=== PATIENT | male | born 1985 | race Hispanic/Latino ===

== ENCOUNTER → 2017-10-24 | Outpatient (CLI) | payer OTHER ==
[~2017-10-24] MED LIST: APIX2.5T PO; EMTR1TAB11 PO; TYL3 PO
== END | disposition home or self-care (01) ==
LOC: OIH 10:37
PROVIDERS: ATTEND Neurological Surgery
DX: M43.26 Fusion of spine, lumbar region (principal)
CPT/HCPCS: 72100

== ENCOUNTER 2018-03-05 10:00 | Observation (INO) | payer OTHER ==
[~2018-03-05] VITALS: Ht 185.4 cm; Wt 79.9 kg
[2018-03-05 10:42] LABS: BASOPHILS % (AUTO) 0.6 % (0.0-5.0); EOSINOPHILS % (AUTO) 1.2 % (0.0-8.0); LYMPHOCYTES % (AUTO) 24.4 % (21.0-51.0); MEAN CORPUSCULAR HEMOGLOBIN 33.1 pg (27.0-33.0); MEAN CORPUSCULAR HGB CONC 34.4 g/dL (32.0-36.0); MEAN CORPUSCULAR VOLUME 96.3 fL (79-99); MONOCYTES % (AUTO) 7.1 % (3.0-13.0); NEUTROPHILS % (AUTO) 66.7 % (40.0-77.0); PLATELET COUNT (AUTO) 245 K/uL (130-400); RED BLOOD CELL COUNT(AUTO) 4.56 MIL/uL (4.50-6.20); RED CELL DISTRIBUTION WIDTH 13.6 % (11.0-15.5); WHITE BLOOD COUNT (AUTO) 5.9 K/uL (4.8-10.8)
[2018-03-05 11:02] LABS: POTASSIUM 4.7 mmol/L (3.5-5.1)
[2018-03-05 11:17] VITALS: BP 118/69
[2018-03-05] MEDS ORDERED: EMTR1TAB11 PO (11:21)
[2018-03-07] VITALS (20 sets, daily range): BP systolic 92–125; BP diastolic 52–99
[2018-03-07] MEDS: CEFAZOLIN SODIUM 1 GM VIAL IVP SCH ×3 (05:00→13:52)
[2018-03-07] MEDS ORDERED: LACTATED RINGERS 1000ML 1,000 ML IV ONE (06:10)
[2018-03-07] MEDS ORDERED: BUPIVACAINE/PF 0.25% 30ML VIAL IJ ONE (06:38)
[2018-03-07] MEDS ORDERED: EPINEPHRINE 1 MG/ML AMPULE ONE (06:38)
[2018-03-07] MEDS ORDERED: DURAMORPH PF1 MG/ML 10ML AMP IV ONE (06:38)
[2018-03-07] MEDS ORDERED: THROMBIN-JMI 20000 UNIT KIT TP ONE (06:39)
[2018-03-07] MEDS ORDERED: BACITRACIN 50,000 UNIT VIAL ONE (06:39)
[2018-03-07] MEDS ORDERED: SODIUM CHLORIDE 0.9% 10 ML VIAL ONE (06:40)
[2018-03-07] MEDS ORDERED: GLYCOPYRROLATE 0.2 MG/ML 5 ML VIAL ONE ×2 (07:05→08:44)
[2018-03-07] MEDS ORDERED: NEOSTIGMINE 5MG/5ML SYR IV ONE ×2 (07:05→08:44)
[2018-03-07] MEDS ORDERED: DEXAMETHASONE SOD PHOSPHATE 10MG/ML 1ML VIAL ONE (07:05)
[2018-03-07] MEDS ORDERED: LIDOCAINE PF 2% 5ML ABBOJECT ONE (07:05)
[2018-03-07] MEDS ORDERED: MIDAZOLAM HCL 1 MG/ML 2ML VIAL ONE ×2 (07:06→07:07)
[2018-03-07] MEDS ORDERED: PROPOFOL 10 MG/ML 20ML VIAL IV ONE (07:06)
[2018-03-07] MEDS ORDERED: FENTANYL CITRATE PF 50 MCG/1 ML 2ML VIAL ONE ×2 (07:07)
[2018-03-07] MEDS ORDERED: ROCURONIUM BROMIDE 10MG/1ML 5ML VL ONE ×2 (08:53)
[2018-03-07] MEDS ORDERED: SUCCINYLCHOLINE CHLORIDE 20 MG/ML 10 ML VIAL ONE (08:53)
[2018-03-07] MEDS ORDERED: CALDOLOR 800MG+NS 250ML 250 ML IV ONE (08:56)
[2018-03-07] MEDS ORDERED: ARTIFICIAL TEARS 3.5 GM OINTMENT ONE ×2 (09:01)
[2018-03-07] MEDS ORDERED: PHENYLEPHRINE HCL 10 MG/ML 1ML VIAL IV ONE (09:02)
[2018-03-07] MEDS ORDERED: ROPIVACAINE 0.5% 5MG/ML 30ML IJ ONE (09:02)
[2018-03-07] MEDS ORDERED: SODIUM CHLORIDE 0.9% 10 ML VIAL IVP PRN (09:15)
[2018-03-07] MEDS ORDERED: CEFAZOLIN 2GM / 50 ML 50 ML IV SCH (09:15)
[2018-03-07] MEDS ORDERED: MORPHINE SULFATE 2 MG/ML 1ML SYG IVP PRN (09:15)
[2018-03-07] MEDS: DEXAMETHASONE SOD PHOSPHATE 4 MG/ML 1ML VIAL IVP SCH ×3 (09:15→21:38)
[2018-03-07] MEDS ORDERED: PROMETHAZINE HCL 25 MG/ML 1ML AMPULE IM PRN (09:15)
[2018-03-07] MEDS ORDERED: MEPERIDINE-PF 50 MG/ML SYG ONE ×2 (09:30→09:47)
[2018-03-07] MEDS: HYDROCODONE/ACETAMINOPHEN 5/325 MG TAB PO PRN ×3 (11:04→18:32)
[2018-03-07] MEDS: LACTATED RINGERS 1000ML 1,000 ML IV SCH ×2 (11:05→21:38)
[2018-03-07] MEDS ORDERED: MORPHINE SULFATE 4 MG/1ML SYG ONE ×2 (15:47→20:36)
[2018-03-08] VITALS: BP 106/61
[2018-03-08] MEDS ORDERED: MORPHINE SULFATE 4 MG/1ML SYG ONE (02:54)
[2018-03-08] MEDS: DEXAMETHASONE SOD PHOSPHATE 4 MG/ML 1ML VIAL IVP SCH (03:19)
[2018-03-08 04:00] VITALS: BP 124/58
[2018-03-08] MEDS: CEFAZOLIN SODIUM 1 GM VIAL IVP SCH (04:22)
[2018-03-08] MEDS: HYDROCODONE/ACETAMINOPHEN 5/325 MG TAB PO PRN (07:46)
[2018-03-08] MEDS ORDERED: EMTRICITABINE/TENOFOVIR 200/300 MG TAB PO SCH (08:00)
[2018-03-08 08:13] VITALS: BP 127/81
== END 2018-03-08 09:08 | disposition home or self-care (01) ==
LOC: EDSTATUS 10:00 → DAHIP 03-07 06:00 → 4AH 03-07 10:13 → 4BH 03-07 10:33
PROVIDERS: ADMIT Neurological Surgery; ATTEND Neurological Surgery
DX: T84.216A Breakdown (mechanical) of internal fixation device of vertebrae, initial encounter (principal); Y83.8 Other surgical procedures as the cause of abnormal reaction of the patient, or of later complication, without mention of misadventure at the time of the procedure; Y92.89 Other specified places as the place of occurrence of the external cause
CPT/HCPCS: 20680; 22102; 36415; 72020; 80051; 85025; 96372; 96374; 96375; 96376 ×2; A4218; A4510; A4600; G0378 ×28; J0171; J0330; J0690 ×3; J1100 ×4; J1741; J2001; J2175 ×2; J2250 ×2; J2270 ×3; J2370; J2550; J2704; J2710 ×2; J2795; J3010 ×2; J3490 ×5; J7030; J7120 ×3; J2274

== ENCOUNTER 2018-04-21 16:14 | Emergency (ER) | payer OTHER ==
[~2018-04-21 16:14] MED LIST changes: -APIX2.5T PO; -TYL3 PO
[2018-04-21] MEDS ORDERED: SODIUM CHLORIDE 0.9% 1000ML 3,000 ML IV ONE (17:46)
[2018-04-21] MEDS ORDERED: ACETAMINOPHEN EXTRA STRENGTH 500 MG TABLET ONE (17:46)
[2018-04-21 17:47] LABS: APPEARANCE,URINE Clear (CLEAR); BASOPHILS % (AUTO) 0.7 % (0.0-5.0); BILIRUBIN,URINE Small (NEGATIVE); COLOR,URINE Dark Yellow (YELLOW); EOSINOPHILS % (AUTO) 0.1 % (0.0-8.0); GLUCOSE, URINE (UA) Negative (NEGATIVE); HEMATOCRIT 40.6 % (42-54); KETONES,URINE Negative (NEGATIVE); LEUKOCYTE ESTERASE ,URINE Trace (NEGATIVE); LYMPHOCYTES % (AUTO) 8.2 % (21.0-51.0); MEAN CORPUSCULAR HEMOGLOBIN 31.2 pg (27.0-33.0); MEAN CORPUSCULAR HGB CONC 34.5 g/dL (32.0-36.0); MEAN CORPUSCULAR VOLUME 90.2 fL (79-99); MONOCYTES % (AUTO) 8.4 % (3.0-13.0); NEUTROPHILS % (AUTO) 82.6 % (40.0-77.0); NITRATE,URINE Negative (NEGATIVE); NUCLEATED RED BLOOD CELLS 0.1 % (0.0-0.19); OCCULT BLOOD,URINE Negative (NEGATIVE); PLATELET COUNT (AUTO) 145 K/uL (130-400); PROTEIN,URINE POS 1+ (NEGATIVE); WHITE BLOOD COUNT (AUTO) 9.4 K/uL (4.8-10.8)
[2018-04-21 17:55] LABS: BACTERIA,URINE None Seen /HPF (None Seen); MUCUS,URINE Few LPF (None Seen); RBC,URINE None Seen /HPF (0-1); WBC,URINE 0-1 /HPF (0-1)
[2018-04-21 17:58] LABS: CREATININE 0.9 mg/dL (0.5-1.5); POTASSIUM 4.2 mmol/L (3.5-5.1)
[2018-04-21 18:00] LABS: INR 0.9 (0.85-1.15); PARTIAL THROMBOPLASTIN TIME 28.9 SEC (26.3-35.5); PROTHROMBIN TIME 9.5 SEC (9.6-11.6)
[2018-04-21 18:04] LABS: ALBUMIN 3.8 g/dL (3.5-5.0); BILIRUBIN,TOTAL 0.6 mg/dL (0.2-1.0); TOTAL PROTEIN, SERUM 6.7 g/dL (6.0-8.3)
[2018-04-21 18:23] LABS: CREATINE KINASE MB < 0.5 ng/mL (0.5-3.6); CREATINE KINASE, TOTAL 66 U/L (21-232); MYOGLOBIN 19 ng/mL (10-92); TROPONIN I < 0.04 ng/mL (0.00-0.06)
[2018-04-21] MEDS ORDERED: CEFTRIAXONE SODIUM 1 GM ONE (18:33)
== END 2018-04-21 22:42 | disposition home or self-care (01) ==
LOC: EDH 16:14
DX: K64.8 Other hemorrhoids (principal); R50.9 Fever, unspecified; Z72.0 Tobacco use
CPT/HCPCS: 36415; 71045; 80053; 81001; 82270; 82550; 82553; 83605; 83874; 84484; 85025; 85610; 85730; 87040 ×2; 87088; 87880; 93005; 96374; 99285; J0696; J7030